=== PATIENT | male | born 1955 | race Caucasian/White ===

== ENCOUNTER → 2018-06-28 14:56 | Outpatient (CLI) | payer BC, SELFPAY ==
[2018-06-28 18:02] LABS: PSA,Total- Diagnostic 4.81 ng/mL (0.0-4.0)
== END ==
PROVIDERS: Family Provider Family Medicine; PCP Family Medicine; Referring Provider Urology; Visit Provider Urology
DX: R97.20 Elevated prostate specific antigen [PSA] (principal)
CPT/HCPCS: 36415; 84153

== ENCOUNTER → 2019-01-17 | Outpatient (CLI) | payer BC, SELFPAY ==
[2019-01-17 10:24] LABS: Hemoglobin A1c 5.7 % (4.2-6.3)
[2019-01-17 10:28] LABS: Anion Gap 5 (5-15); BUN 17 mg/dL (7-18); BUN/Creat Ratio 16.8 RATIO (10-20); Calcium,Total 9.1 mg/dL (8.5-10.1); Chloride 108 mmol/L (98-107); Creatinine, Serum 1.01 mg/dL (0.70-1.30); EST Glomerular Filtration Rate 79 mL/min (>60); Est Glom Filt Rate - Afr Amer 96 mL/min (>60); Glucose 87 mg/dL (74-106); Potassium 4.6 mmol/L (3.5-5.1); Sodium Level 139 mmol/L (136-145)
== END | disposition home or self-care (01) ==
LOC: MFPLAB 08:44
PROVIDERS: Family Provider Family Medicine; PCP Family Medicine; Referring Provider Family Medicine; Visit Provider Family Medicine
DX: I10 Essential (primary) hypertension (principal); R73.09 Other abnormal glucose
CPT/HCPCS: 36415; 80048; 83036

== ENCOUNTER → 2019-10-29 15:21 | Outpatient (CLI) | payer BC, SELFPAY ==
[2019-10-29 17:47] LABS: PSA,Total - Annual Screen 5.52 ng/mL (0.00-4.00)
== END ==
PROVIDERS: PCP Family Medicine; Referring Provider Urology; Visit Provider Urology
DX: Z12.5 Encounter for screening for malignant neoplasm of prostate (principal)
CPT/HCPCS: 36415; 84153; G0103

== ENCOUNTER 2021-10-12 09:46 | Outpatient (CLI) | payer MEDICARE, SELFPAY ==
[2021-10-12 13:14] LABS: PSA,Total- Diagnostic 6.78 ng/mL (0.0-4.0)
== END 2021-10-12 23:59 | disposition home or self-care (01) ==
LOC: MTLAB 09:48
PROVIDERS: PCP Family Medicine; Referring Provider Urology; Visit Provider Urology
DX: R97.20 Elevated prostate specific antigen [PSA] (principal)
CPT/HCPCS: 36415; 84153

== ENCOUNTER 2021-12-20 16:28 | Outpatient (CLI) | payer MEDICARE, SELFPAY ==
--- NOTE | 2021-12-20 | IMM_PTH ---
PATIENT: BLAIR SHEIKH LOC: [facility] U#:[id number] AGE/SX: 66/M ROOM: RE12/20/[address]: Dr. Aristeo Thomas MD : 1955 BED: DIS: 12/20/2021 SPEC #: [id number] RECD: 12/22/21 12:51 STATUS: HILARY REQ #: [id number] PIEDAD: 12/20/21 00:[address]: Aristeo Thomas DEPT: IMMUNOHISTOCHEMISTRY RECD BY: Tracy Alaniz ENTERED: 12/22/21 12:52 SP TYPE: IMMUNO OTHR DR: Dr. Fred Martínez MD Tissues: A - PROSTATE RIGHT B - PROSTATE RIGHT Procedures: 34BE12 (add) P40 (add) 34BE12 (initial) PHYSICIAN & INSTITUTION [place] [address] SPECIMEN INFORMATION: Tissue Source: A - Right prostate, apex, core biopsy, B - Right prostate, mid, core biopsy Clinical Info: Elevated PSA Specimen Number: [id number] CPT code: 38042, 59746 x3 METHODOLOGY: Deparaffinized sections of prefer/formalin-fixed tissue or PAP/DQ stained slides are incubated with monoclonal/polyclonal antibodies/oligonucleotide probes. Localization is made via biotin free immunoperoxidase method. Appropriate controls are performed and reacted as expected. Results on target cell population are indicated in the following table: RESULTS: ANTIBODY / CLONE RESULT Block A P40 (BC28) positive 34BE12 (34BE12) positive Block B P40 (BC28) positive 34BE12 (34BE12) positive These tests were developed and their performance characteristics determined by [facility]. They may not have been cleared or approved by the U.S. Food and Drug Administration. The FDA has determined that such clearance or approval is not necessary. The above immunohistochemical/dualISH markers are ordered and reviewed by the Pathologist. INTERPRETATION: A. Right prostate, apex, core biopsy: Benign prostatic tissue. B. Right prostate, mid, core biopsy: Benign prostatic tissue. AM:haily 12/23/2021
--- NOTE | 2021-12-20 08:00 | PROSBIL_PTH ---
PATIENT: BLAIR SHEIKH LOC: [facility] U#:[id number] AGE/SX: 66/M ROOM: RE12/20/[address]: Dr. Aristeo Thomas MD : 1955 BED: DIS: 12/20/2021 SPEC #: [id number] RECD: 12/20/21 16:22 STATUS: HILARY CARLOS ALBERTO #: [id number] PIEDAD: 12/20/21 08:[address]: Aristeo Thomas DEPT: SURGICAL PATHOLOGY RECD BY: David Palomares ENTERED: 12/21/21 09:50 SP TYPE: PROST BX SLAVA DR: Dr. Fred Martínez MD Tissues: A - PROSTATE RIGHT B - PROSTATE RIGHT C - PROSTATE RIGHT D - PROSTATE LEFT E - PROSTATE LEFT F - PROSTATE LEFT Procedures: PROSTATE BX HEADER OPERATION: Prostate biopsy PRE-OP DIAGNOSIS: Elevated PSA TISSUE SUBMITTED: A - Right apex, B - Right mid, C - Right base, D - Left apex, E - Left mid, F - Left base MICROSCOPIC DIAGNOSIS A. Right prostate, apex, core biopsy: Minimal chronic inflammation and focal glandular atrophy. See comment. B. Right prostate, mid, core biopsy: Mild chronic inflammation and focal glandular atrophy. See comment. C. Right prostate, base, core biopsy: Benign prostatic tissue. D. Left prostate, apex, core biopsy: Focal glandular atrophy and mild chronic inflammation. E. Left prostate, mid, core biopsy: Glandular atrophy and mild chronic inflammation. F. Left prostate, base, core biopsy: Benign prostatic tissue. AM:haily 12/22/2021 COMMENT A & B. Immunohistochemistry ([id number]) supports the above diagnosis. MICROSCOPIC DESCRIPTION Slides are reviewed. GROSS DESCRIPTION A - Received is one container designated prostate, right apex. The specimen consists of two elongated fragments of light ca-white soft tissue measuring 0.8 and 1 cm in length and 0.1 cm in diameter. The specimen is totally submitted in one cassette. B - Received is one container designated prostate, right mid. The specimen consists of two elongated fragments of light ca-white soft tissue each measuring 1.5 cm in length and 0.1 cm in diameter. The specimen is totally submitted in one cassette. C - Received is one container designated prostate, right base. The specimen consists of two elongated fragments of light ca-white soft tissue each measuring 1.3 cm in length and 0.1 cm in diameter. The specimen is totally submitted in one cassette. D - Received is one container designated prostate, left apex. The specimen consists of two elongated fragments of light ca-white soft tissue measuring 0.5 and 1 cm in length and 0.1 cm in diameter. The specimen is totally submitted in one cassette. E - Received is one container designated prostate, left mid. The specimen consists of two elongated fragments of light ca-white soft tissue each measuring 1 cm in length and 0.1 cm in diameter. The specimen is totally submitted in one cassette. F - Received is one container designated prostate, left base. The specimen consists of two elongated fragments of light ca-white soft tissue each measuring 0.8 cm in length and 0.1 cm in diameter. The specimen is totally submitted in one cassette. / SJ:rg 12/21/2021 TC:3 CPT: G0146
== END 2021-12-20 23:59 | disposition home or self-care (01) ==
LOC: LAB 16:29
PROVIDERS: PCP Family Medicine; Visit Provider Urology
DX: R97.20 Elevated prostate specific antigen [PSA] (principal)
CPT/HCPCS: 88305; 88341; 88342; G0416

== ENCOUNTER → 2022-01-04 | Outpatient (CLI) | payer MEDICARE, SELFPAY ==
--- NOTE | 2022-01-04 09:13 | RAD_ITS ---
STUDY: X-RAY - PELVIS AND LEFT HIP REASON FOR EXAM: Male, 66 years old. HIP PAIN TECHNIQUE: views of the pelvis and hip. COMPARISON: None. FINDINGS: There is a non-specific bowel gas pattern. Normal visualized soft tissue structures. Normal bilateral iliac wings, sacroiliac joints and visualized sacrum. Normal bilateral superior and inferior pubic rami. Normal pubic symphysis. Normal bilateral ischial tuberosities. Normal visualized femoral head. Normal acetabulum. Normal hip joint. RAD/HIP, UNI W/ Pelvis 2-3 Views IMPRESSION: Normal x-ray examination of the pelvis and hip. Electronically Signed: Douglas Shanks MD at 1:04 EDT ,
[2022-01-04 10:12] LABS: Anion Gap 5 (5-15); BUN 24 mg/dL (7-18); BUN/Creat Ratio 22.6 RATIO (10-20); Calcium,Total 10.2 mg/dL (8.5-10.1); Chloride 106 mmol/L (98-107); Creatinine, Serum 1.06 mg/dL (0.70-1.30); EST Glomerular Filtration Rate 74 mL/min (>60); Est Glom Filt Rate - Afr Amer 90 mL/min (>60); Glucose 97 mg/dL (74-106); Potassium 4.4 mmol/L (3.5-5.1); Sodium Level 138 mmol/L (136-145)
== END | disposition home or self-care (01) ==
PROVIDERS: Family Medicine; PCP Family Medicine; Referring Provider Family Medicine; Visit Provider Family Medicine
DX: M16.12 Unilateral primary osteoarthritis, left hip (principal); I10 Essential (primary) hypertension
CPT/HCPCS: 36415; 73502; 80048

== ENCOUNTER → 2022-05-19 | Outpatient (CLI) | payer MEDICARE, SELFPAY ==
[2022-05-19 12:46] LABS: Anion Gap 8 (5-15); BUN 20 mg/dL (7-18); BUN/Creat Ratio 20.9 RATIO (10-20); Calcium,Total 9.9 mg/dL (8.5-10.1); Chloride 104 mmol/L (98-107); Creatinine, Serum 0.96 mg/dL (0.70-1.30); EST Glomerular Filtration Rate 83 mL/min (>60); Est Glom Filt Rate - Afr Amer 101 mL/min (>60); Glucose 85 mg/dL (74-106); Potassium 4.8 mmol/L (3.5-5.1); Sodium Level 139 mmol/L (136-145)
== END | disposition home or self-care (01) ==
LOC: MFPLAB 09:42
PROVIDERS: PCP Family Medicine; Referring Provider Family Medicine; Visit Provider Family Medicine
DX: E83.52 Hypercalcemia (principal)
CPT/HCPCS: 36415; 80048

== ENCOUNTER → 2023-05-18 | Outpatient (CLI) | payer MEDICARE, SELFPAY ==
[2023-05-18 10:37] LABS: Anion Gap 5 (5-15); BUN 19 mg/dL (7-18); BUN/Creat Ratio 17.6 RATIO (10-20); Calcium,Total 9.8 mg/dL (8.5-10.1); Chloride 109 mmol/L (98-107); Cholesterol 172 mg/dL (200); Creatinine, Serum 1.08 mg/dL (0.70-1.30); EST Glomerular Filtration Rate 72 mL/min (>60); Est Glom Filt Rate - Afr Amer 87 mL/min (>60); Glucose 90 mg/dL (74-106); High Density Lipoprotein 50 mg/dL; PSA,Total - Annual Screen 8.76 ng/mL (0.00-4.00); Potassium 4.2 mmol/L (3.5-5.1); Sodium Level 139 mmol/L (136-145); Triglycerides 70 mg/dL; Very Low Density Lipoprotein 14 mg/dL (5-40)
== END | disposition home or self-care (01) ==
LOC: MTLAB 07:03
PROVIDERS: PCP Family Medicine; Referring Provider Family Medicine; Visit Provider Family Medicine
DX: Z13.220 Encounter for screening for lipoid disorders (principal); I10 Essential (primary) hypertension; Z12.5 Encounter for screening for malignant neoplasm of prostate
CPT/HCPCS: 36415; 80048; 80061; 84153; G0103

== ENCOUNTER 2023-10-31 07:25 | Day surgery (SDC) | payer MEDICARE, SELFPAY ==
[2023-10-09 08:50] LABS: Absolute Lymphocyte Count 1.95 X10^3/uL (0.83-4.51); Absolute Neutrophil Count 3.5 X10^3/uL (2.0-7.7); Basophil# 0.12 X10^3/uL; Basophil% 1.6 % (0-1); Eosinophil# 0.55 X10^3/uL; Eosinophils% 7.4 % (0-5); Hematocrit 46.9 % (40-54); Hemoglobin 15.9 g/dL (13.0-16.5); Lymphocyte # 1.95 X10^3/ul (0.83-4.51); Lymphocyte % 26.2 % (19-41); Mean Corp Hgb Conc 33.9 g/dL (32-36); Mean Corpuscular Hgb 30.7 pg (27.0-32.0); Mean Corpuscular Volume 90.5 fL (80-94); Mean Platelet Vol. 9.8 fl (6.2-12.0); Monocyte# 1.26 X10^3/uL; Monocyte% 16.9 % (0-10); NRBC Flagged by Analyzer 0 % (0-5); Neutrophil # 3.53 X10^3/uL (2.7-7.7); Neutrophil % 47.4 % (47-70); Platelet Count 274 K/mm3 (150-450); RBC Distribution Width CV 12.4 % (11.6-14.6); RBC Distribution Width SD 41.4 fl (35.1-43.9); Red Blood Count 5.18 M/mm3 (4.6-6.2); White Blood Count 7.5 K/mm3 (4.4-11.0)
[2023-10-09 09:52] LABS: Albumin, Serum 3.9 g/dL (3.2-5.0); Anion Gap 4 (5-15); BUN 17 mg/dL (7-18); BUN/Creat Ratio 14.2 RATIO (10-20); Calcium,Total 10.4 mg/dL (8.5-10.1); Chloride 109 mmol/L (98-107); EST Glomerular Filtration Rate 64 mL/min (>60); Est Glom Filt Rate - Afr Amer 77 mL/min (>60); Glucose 88 mg/dL (74-106); Magnesium 2.5 mg/dL (1.6-2.6); Potassium 4.2 mmol/L (3.5-5.1); Sodium Level 138 mmol/L (136-145)
--- NOTE | 2023-10-25 05:26 | HP.PCM_ITS ---
History and Physical History and Physical? Patient Name: Aguilar Schwartz : 1955 From:? RAY MATHIS PA-C? DATE OF PRE-OPERATIVE EXAM: 10/22/2023 DATE OF SURGERY:? 10/31/2023 SCHEDULED PROCEDURE:? Left total hip arthroplasty HISTORY OF PRESENT ILLNESS: Preoperative history and physical exam was performed on October 22, 2023.? This is a 68-year-old male who is had ongoing pain for the past couple years.? The pain has been progressing since April 2023.? His pain as being constant, dull and sharp.? Pain is increased with going up and down stairs and walking.? He also notes that he has pronation of the left foot with walking.? He does complain of occasional instability.? He states all activities are more difficult at home secondary to his hip pain.? Patient states he has always requiring some support when up and moving.? Pain does awaken him at night.? Pain is located in the left groin.? Patient denies past history of surgery on the left hip.? He has tried rest, elevation with minimal relief.? He has tried oral medications including Tylenol and meloxicam.? Rest has minimal relief.? Patient has medical history pertinent for hypertension.? He denies past history of DVT or pulmonary embolism.? We have obtain surgical clearance from the primary care physician Dr. Martínez.? After failing conservative measures and discussing all treatment options was Dr. Charles Baez, the patient does wish to proceed with a left total hip arthroplasty.? He currently denies any recent chest pain, shortness of breath, fevers chills or recent infections. REVIEW OF SYSTEMS: Review Of Systems: Constitutional: Denies change in appetite, fever and weight change. Cardiovasular: Denies chest pain, heart murmur and irregular heartbeat. Respiratory: Denies cough, pneumonia, shortness of breath, tuberculosis and wheezing. Gastrointestinal: Denies constipation, diarrhea, heartburn, nausea, rectal itching, bloody stools and vomiting. Musculoskeletal: Reports pain, trouble walking and weakness, but denies leg swelling. Skin: Denies Raynaud's, history of shingles and tattoo. Neurological: Denies ambulatory dysfunction, dizziness, numbness/tingling and tremor. Psychiatric: Denies anxiety, insomnia and stress. Hematologic/Lymphatic: Denies anemia, bleeding/bruising tendency and past transfusion. Reviewed, no changes. PAST MEDICAL HISTORY: Advance Care Plan: No Advance Directives Effective Date: 06/20/2023 Past Medical History: Medical Problems: Arthritis, High Blood Pressure Kidney Stones - history? hypercalcemia Accidents: Fracture - (1966) HAND [facility] DR. REBOLLEDO Surgical Hx: Kidney Stones - (1999) [facility] ER Anesthesia Complications: None Assistive Devices: Glasses Reviewed and updated. SOCIAL HISTORY: Social History: Marital: .Occupation: Retired.Work Status: Retired.Hand Dominance: Right- handed. Personal Habits:? Cigarette Use: Never Smoked Cigarettes.Smokeless Tobacco: Never Used Smokeless Tobacco.E-Cigarette Use: Never used.Alcohol: Denies use.Drug Use: Denies Use.Enjoy Exercising: Exercises 1-3 X/Week. Reviewed, no changes. VITALS: Ht: 71.5 Wt: 224lb Wt k.606 BMI: 30.8 BP: 128/74 Pulse: 67 Resp: 16 T: 96.8 T: 36.0C Pain Level: 7 O2SatR: 96 ALLERGIES: No Known Drug Allergy? MEDICATIONS: Oxycodone HCL 5 mg 1-2 tab by mouth every 4 hours, Ondansetron HCL 4 mg 1q 8 hours as needed nausea, Famotidine 20 mg 1 by mouth every day, Meloxicam 7.5 mg 1 by mouth twice a day, Aspirin 81 81 mg one tablet three times a week, Lisinopril 10 mg 1 by mouth every day, Multi For Him? 1 po qdaily, Vitamin D 50 mcg (1999 Ut) 1 by mouth 5 days a week PRE-OP EXAM:? General appearance:NORMAL? ? ? Other: Eyes: Conjunctivae and lids: NORMAL? Pupils: ERR Ears, Nose, Mouth, and Throat: NORMAL? Other: Inspection of lips, teeth and gums: NORMAL? ?Other: Neck: Examination of neck: no masses noted. Respiratory: Assessment of respiratory effort: NORMAL? ?Other: ?Auscultation of lungs: clear to auscultation no wheezes, rhonchi or rales. Cardiovascular:? Auscultation of heart: regular rate and rhythm, no murmurs, gallops or rubs. PHYSICAL EXAMINATION: Patient does walk with an antalgic gait.? Patient's left hip is without erythema.? He has increased pain in the groin with all motion.? Range of motion: 65 flexion with obligatory external rotation, internal rotation 5, external rotation 15.? Sensation intact to light touch.? Resisted range of motion: 4/5 hip strength on the left and 5/5 on the right. IMAGING STUDIES: Previous x-rays of the left hip reveal joint space narrowing, subchondral sclerosis, osteophyte formation consistent with severe stage IV bone on bone erosive osteoarthritis IMPRESSION: 1.? Severe left hip osteoarthritis 2.? Hypertension 3.? History of kidney stone 4.? Obesity with BMI 30.8 PLAN: Dr. Charles Baez did discuss and review with the patient all treatment options including surgical versus nonsurgical options.? Patient does wish to proceed with the above-stated procedure.? Potential risks, benefits, and complications of the procedure were discussed in detail including but not limited to , infection, nerve and blood vessel damage, persistent pain, numbness, tingling, paresthesias, blood clot, pulmonary embolism, and requirement for possible further surgery.? The patient expressed full understanding and has no further questions for the doctor.? Patient does agree to proceed with the above-stated procedure and has signed the surgery consent form. POST-OP MEDICATION PLAN: Pain Medications:? Patient was given the following medications at the preoperative visit: Famotidine, meloxicam, Zofran, and oxycodone.? Patient was instructed to machine operator picker aspirin 81 mg, extra strength Tylenol, and senna.? Patient does have a walker that he will bring to the hospital. DVT Prophylaxis:? Aspirin 81 mg twice daily for 4 weeks postoperatively.? Denies past history of DVT or pulmonary embolism This dictation was created using voice recognition software. Phonetic and/or grammatical errors may exist. ___? I have re-examined the patient.? There are no clinical changes since date of exam. ___? See progress notes for changes. ___? Dictated on admission Date: ? ? ?Time: Signature:
[2023-10-31] VITALS (7 sets, daily range): BP systolic 97–152; BP diastolic 64–88; PULSE 55–72; RESP 11–16; TEMP 36.1–36.7; O2SAT 96–98; BMI 31.6
--- NOTE | 2023-10-31 07:11 | RAD_ITS ---
INDICATION: NESTOR -- in PACU EXAMINATION/TECHNIQUE: X-RAY - XR Hip Unilateral with Pelvis when performed; 2-3 Views COMPARISON: January 04, 2022 FINDINGS: PELVIC BONES: No displaced fracture, destructive or sclerotic lesions. Note that overlapping bowel shadows may however obscure fine detail. Sacroiliac joints are unremarkable. No widening of the pubic symphysis. HIPS: The right hip is within normal limits. There is a new left total hip arthroplasty. The alignment is grossly anatomic. SOFT TISSUES: There are postsurgical changes within the soft tissues of the left thigh. RAD/Hip Min 2 Views (Portable) IMPRESSION: Left total hip arthroplasty, grossly anatomic in alignment. Electronically Signed: Michell Kenyon MD at 20:17 EST ,
[2023-10-31] MEDS: Lactated Ringers 1,000 ML 999 ML IV ×2 (08:10→12:29)
[2023-10-31] MEDS: Magnesium 1 GM over 15 mins IV (08:15)
[2023-10-31] MEDS: Gabapentin 600 MG Tablet PO (08:44)
[2023-10-31] MEDS: Celecoxib 200 MG Capsule 400 MG PO (08:44)
[2023-10-31] MEDS: Acetaminophen 500 MG Tablet 1000 MG PO (08:44)
[2023-10-31] MEDS: Lactated Ringers 1,000 ML 75 ML IV (10:00)
--- NOTE | 2023-10-31 10:00 | HIP_PTH ---
PATHOLOGY RESULTS PATIENT: BLAIR SHEIKH [place] [facility] [place][id number] AGE/SX: 68/M ROOM: RE10/31/[address]: Dr. Charles Baez MD : 1955 BED: DIS: 10/31/2023 SPEC #: [id number] RECD: 10/31/23 12:59 STATUS: HILAYR RESuman #: [id number] PIEDAD: 10/31/23 10:[address]: Charles Baez DEPT: SURGICAL PATHOLOGY RECD BY: Millie Us ENTERED: 10/31/23 12:59 SP TYPE: TOTAL HIP OTHR DR: Dr. Fred Martínez MD Tissues: Hip, NOS Procedures: Decalcification bone/plaque Surgery Specimen Level IV HEADER OPERATION: Total hip replacement anterior approach PRE-OP DIAGNOSIS: Left hip osteoarthritis TISSUE SUBMITTED: Left hip bone and tissue MICROSCOPIC DIAGNOSIS Left hip bone and tissue, total hip replacement/resection: Femoral head with degenerative osteoarthritic changes. Fragments of fibroadipose tissue, fibroconnective tissue and reactive synovial tissue. JENNA:haily 11/05/2023 MICROSCOPIC DESCRIPTION Slides are reviewed. GROSS DESCRIPTION Received is one container labeled with the patient's name and designated bone and soft tissue left hip. The specimen consists of a ca femoral head measuring 5.0 x 5.0 x 4.5 cm. Also present in the container is a piece of bone consistent with portion of femoral neck measuring 4.0 x 4.0 x 1.0 cm. The articular surface displays prominent osteophyte formation, eburnation and bone erosion. Also present in the specimen container are multiple irregular fragments of bone reamings measuring in aggregate 7.0 x 7.0 x 2.0 cm. A piece of soft tissue is noted on the top of femoral head and also present in the container is a piece of fibrocartilaginous tissue measuring in aggregate 8.0 x 4.0 x 0.6 cm. Pattern Maker sections are submitted in two cassettes as follows: 1 - soft tissue, 2 - femoral head after decalcification. / JENNA:haily 10/31/2023 TC:5 CPT: 66815, 11097
[2023-10-31] MEDS: Cefazolin 2 GM in 0.9% Normal Saline (100mL Bag) 100 ML IV (10:14)
[2023-10-31] MEDS: dexAMETHasone 10 MG/ML Vial IV (10:19)
[2023-10-31] MEDS: TXA 1000mg in NS100 100ml (IVPB at Incision) 660 MG IV (10:24)
--- NOTE | 2023-10-31 10:45 | RAD_ITS ---
STUDY: X-RAY - PELVIS AND LEFT HIP REASON FOR EXAM: Male, 68 years old. PAIN TECHNIQUE: 4 fluoroscopic guided views views of the pelvis and hip. 4.1 seconds of fluoroscopic imaging time was utilized COMPARISON: None. FINDINGS: 4 fluoroscopic guided views of the left hip were obtained status post hip prosthesis placement. . Prosthesis appears to be in anatomic alignment and position however for more complete information recommend correlation with surgical notes RAD/Hip 1 view with Pelvis IMPRESSION: Fluoroscopic guided left hip prosthesis placement Electronically Signed: eMndoza Kahn MD at 16:56 EST ,
[2023-10-31] MEDS: TXA 1000mg in NS100 100ml (IVPB at Closure) 660 MG IV (11:10)
[2023-10-31] MEDS: JPS (Morphine 10mg/ml) OPERA.SITE (11:14)
--- NOTE | 2023-10-31 11:18 | PCM.OPRPT ---
Report of Operation Date of Procedure: 10/31/23 Pre-Operative Diagnosis: Left hip primary osteoarthritis Post-Operative Diagnosis: Left hip primary osteoarthritis Surgery/Procedure Performed:: Left minimally invasive direct anterior hip replacement Description of Surgical Findings:: Stable hip with equal leg lengths Surgeon: Charles Baez promotion writer: Blake Vitale Type of Anesthesia: Spinal Special Medications: 2 g Ancef, 1 g TXA at incision, 1 g TXA closure, 10 mg Decadron, joint cocktail (5 mg Duramorph, 30 mL of 0.5% Ropivicaine, 1000 units of epinephrine, 30 mg of Toradol) Specimen's removed: Bony cuts Estimated Blood Loss (mL): 250 Fluids Replaced: 500 ML Description of Procedure: Components used: 1. Accolade 2 Freda femoral stem size 7 127? 2. Freda trident 2 acetabular shell size 58 mm 3. Freda X3 polyethylene F 4. Nisula Biolox delta 36mm, -5mm femoral head Brief history operative indications: 68 yo M who failed conservative measures for their hip osteoarthritis. X-rays were consistent with osteoarthritis including joint space narrowing, osteophyte formation and subchondral cysts. Total hip replacement was discussed with the patient with risks and benefits including but not limited to blood loss, DVTs, PEs, neurovascular damage, dislocation, general risks of anesthesia including loss of life. Patient demonstrated an understanding medical clearance is obtained the patient was consented for surgery. Procedure: On the date of procedure the patient's L hip was marked in the preoperative area. Patient was then taken back to the operating room where anesthesia assumed control of the C-spine and airway and administered anesthetic. Patient was transferred to the operating table and placed in the supine position. The hips were placed at the break of the bed and a sacral bump was placed. L The lower extremity was then prepped out in a sterile fashion using chlorhexidine while the surgeon scrubbed. The PA was vital in the positioning of the patient. Upon reentering the room the left lower extremity was draped in the standard orthopedic fashion and the incision was marked. A timeout was called and everyone agreed upon the side, the site, the procedure be performed, antibody given, and patient's identity. At this time incision was made through skin, subcutaneous tissue, and fat down to fascia. The fascia was then incised and the TFL was retracted laterally. A retractor was placed on the lateral border of the femoral neck. Attention was directed to the inferior portion of the approach and all crossing vessels were identified and appropriately coagulated. A retractor was then placed on the medial portion of the femoral neck. The anterior capsule was then cleared of all soft tissue and then H shaped capsulotomy was made. The retractors were then placed inside the capsule. The femoral neck was identified and a cleanup cut was made. At this time a power corkscrew was used to remove the femoral head. Attention was then turned toward the acetabulum where the soft tissues were appropriately retracted and the acetabulum was sequentially reamed to 58 mm. A 58 mm cup was then selected and impacted into place. Acetabular liner was impacted into place and locking mechanism was verified. The position of the acetabular cup was then verified under live fluoroscopy. Attention was then turned to the femur. Soft tissue releases on the medial and lateral femoral neck were appropriately done, the leg was externally rotated and lateralized. A Gamino retractor was placed medially and proximally to the greater trochanter this allowed appropriate visualization and exposure of the femoral canal. Rongeour was then used to remove excess lateral bone. A canal finder and entry broach were used to open the proximal canal. Once we verified we were down the femoral canal we subsequently broached up to a size 7 femur. The appropriate neck was placed in the previously selected head was trialed with a -5 mm neck. Traction was pulled and the hip was reduced with internal rotation. Once it was appropriately reduced and stability was checked. There was minimal shuck, equal leg lengths and appropriate stability with hyperextension and external rotation as well as with 90? flexion and internal rotation. Fluoroscopy was then also used to verify the position of the components and leg lengths using the contralateral side for comparison. The trial components were then dislocated the proximal femur was again exposed and the components were removed from the wound. The final components were verified and opened. The wound was copiously irrigated out with normal saline. The acetabulum was checked for any residual debris. The final components were placed and impacted. Traction and internal rotation were again used to reduce the hip. After adequate reduction the hip remained stable with appropriate leg lengths. The final components were once again checked with live fluoroscopy and were found to be satisfactory. The wound was then copiously irrigated with normal saline once more, and hemostasis was obtained. Closure was then done using #1 Vicryl runner to close the fascia. A 2-0 vicryl interuppted sutures were used to close the subcutaneous skin. A 3-0 Monocryl and Steri-Strips were used for final skin closure. A Silverlon dressing was placed. Patient was awakened by anesthesia and transferred to the [facility]. Patient was then transferred to the PACU for recovery. During the course of the procedure the physician control and recovery combat rescue (PE) played a vital role. Their intimate knowledge of my steps in the procedure aided in safe and expedient completion of the procedure. The PE played a vital rolls in positioning particularly in obtaining the appropriate positioning of the sacral bump. The PE was also vital in the retraction of soft tissues during the exposure and especially the femoral work as this is a vital part of the procedure to prevent complications and fractures. The PE was also vital and protecting soft tissues during times of bony cuts and reaming. He also played a vital role in closure with my direct supervision. The PE was also important during reduction and dislocation of the joint and trials intraoperatively. Postoperative plan: Patient will get 24 hours postop antibiotics. Patient will get in-house physical therapy and will be weight-bear as tolerated. Patient will follow up in office in 2 weeks for a wound check and x-rays. Aspirin 81 mg twice daily. Complications No intraoperative complications Admit VTE Documentation VTE Present on Admission: No VTE Mechan Device Prophylaxis: SCD's and Thigh High DWAYNE Hose VTE Pharm Prophylaxis ordered?: Yes
[2023-10-31] MEDS: Cefazolin 1 GM/50 ML BAG IV (13:30)
[2023-10-31] MEDS: Lactated Ringers 1,000 ML 125 ML IV (13:30)
[2023-10-31] MEDS: oxyCODONE 5 MG Tablet PO (13:44)
== END 2023-10-31 17:24 | disposition home or self-care (01) ==
LOC: SDC 07:27 → AC 07:31
PROVIDERS: PCP Family Medicine; Referring Provider Specialist; Visit Provider Specialist
PROC: (CPT 27284; principal; 2023-10-31 09:35)
DX: M16.12 Unilateral primary osteoarthritis, left hip (principal); I10 Essential (primary) hypertension; E66.9 Obesity, unspecified; Z68.30 Body mass index [BMI] 30.0-30.9, adult; Z87.442 Personal history of urinary calculi
CPT/HCPCS: 27130; 01214; 36415; 73501; 73502; 76000; 80048; 82040; 83735; 85025; 87081; 88305; 88311; 93005; 97162; C1776; J7120; J2405; J3475

== ENCOUNTER 2024-01-07 08:58 | Outpatient (CLI) | payer MEDICARE, SELFPAY ==
--- NOTE | 2024-01-07 09:00 | RAD_ITS ---
STUDY: X-RAY - LEFT KNEE REASON FOR EXAM: Male, 68 years old. Pain. TECHNIQUE: 4 views of the left knee. COMPARISON: None. FINDINGS: Normal visualized distal femur. Normal visualized proximal tibia and fibula. Normal proximal tibiofibular articulation. There is no demonstrated fracture. There is mild degenerative arthrosis of the medial femorotibial compartment. There is moderate to severe degenerative arthrosis of the lateral femorotibial compartment with moderate to severe joint space narrowing. There is mild degenerative arthrosis of the patellofemoral articulation. There is no significant joint effusion. The soft tissue structures are unremarkable. RAD/Knee 4 or More Views IMPRESSION: Tricompartment degenerative arthrosis, most severe in the lateral femorotibial compartment. No demonstrated fracture. Electronically Signed: Josh Arzola MD at 10:16 EDT ,
--- NOTE | 2024-01-07 09:01 | RAD_ITS ---
STUDY: X-RAY - RIGHT KNEE REASON FOR EXAM: Male, 68 years old. Pain. TECHNIQUE: 4 views of the right knee. COMPARISON: None. FINDINGS: Normal visualized distal femur. Normal visualized proximal tibia and fibula. Normal proximal tibiofibular articulation. There is no demonstrated fracture. There is moderate degenerative arthrosis of the medial femorotibial compartment with moderate joint space narrowing. There is moderate degenerative arthrosis of the lateral femorotibial compartment with moderate joint space narrowing. There is mild degenerative arthrosis of the patellofemoral articulation. The soft tissue structures are unremarkable. RAD/Knee 4 or More Views IMPRESSION: Tricompartment degenerative arthrosis, most pronounced in the medial and lateral femorotibial compartments. No demonstrated fracture. Electronically Signed: Josh Arzola MD at 10:07 EDT ,
== END 2024-01-07 23:59 | disposition home or self-care (01) ==
PROVIDERS: PCP Family Medicine; Referring Provider Family Medicine; Visit Provider Family Medicine
DX: M25.561 Pain in right knee (principal); M25.562 Pain in left knee
CPT/HCPCS: 73564

== ENCOUNTER → 2024-02-21 | Outpatient (CLI) | payer MEDICARE, SELFPAY ==
[2024-02-22 13:08] LABS: PSA, Free % 27.1 % (.)
== END | disposition home or self-care (01) ==
LOC: MTLAB 08:54
PROVIDERS: PCP Family Medicine; Referring Provider Urology; Visit Provider Urology
DX: R97.20 Elevated prostate specific antigen [PSA] (principal)
CPT/HCPCS: 36415; 84153; 84154

== ENCOUNTER → 2025-02-24 | Outpatient (CLI) | payer MEDICARE, SELFPAY ==
[2025-02-25 13:08] LABS: PSA, Free 1.83 ng/mL; PSA, Free % 27.9 % (.)
== END | disposition home or self-care (01) ==
LOC: MTLAB 08:22
PROVIDERS: PCP Family Medicine; Referring Provider Urology; Visit Provider Urology
DX: R97.20 Elevated prostate specific antigen [PSA] (principal)
CPT/HCPCS: 36415; 84153; 84154

== ENCOUNTER → 2025-06-19 | Outpatient (CLI) | payer MEDICARE, SELFPAY ==
--- OUTSIDE RECORDS SUMMARY | 2025-06-19 09:12 | XMS RPT_ITS | CCD ---
Author Organization [facility] Care Team Providers Care Tool And Cutter Grinder Name Role Phone Tanya LANDON, Dr. Ibarra Primary Care Provider William LANDON, Dr. Aristeo Hilton Attending Provider William LANDON, Dr. Aristeo Hilton Referring Provider 1( [phone] Fred Martínez Primary Care Unavailable Aristeo Thomas Referring Unavailable Aristeo Thomas Attending Unavailable Medications Current Medications Medication Drug Class(es) Dates Sig (Normalized) Sig (Original) aspirin 81 mg oral tablet (3 sources) Platelet Aggregation Inhibitor, Nonsteroidal Anti-inflammatory Drug Start: 10-05-2023 take 1 capsule by mouth every other day Aspirin 81 mg capsule Active 81 mg PO .QOD October 05, 2023 1:00am [facility] cholecalciferol 0.025 mg chewable tablet (3 sources) Vitamin D Start: 10-05-2023 take 1 tablet by mouth once daily Cholecalciferol (Vitamin D3) (Vitamin D3) 25 mcg (1,000 unit) tablet,chewable Active 25 ug PO DAILY October 05, 2023 1:00am SUPPLEMENT lisinopril 10 mg oral tablet (3 sources) Angiotensin Converting Enzyme Inhibitor Start: 10-05-2023 take 1 tablet by mouth once daily Lisinopril 10 mg tablet Active 10 mg PO DAILY October 05, 2023 1:00am HTN Completed/Discontinued Medications Medication Drug Class(es) Dates Sig (Normalized) Sig (Original) Multivit,Ilene,Mn-Foli c-D3-Lycop (One A Day Men Complete) 240-25-300 mcg tablet (3 sources) Start: 10-05-2023 Multivit,Ilene,Mn-Fol ic-D3-Lycop (One A Day Men Complete) 240-25-300 mcg tablet Active 1 {tbl} PO DAILY October 05, 2023 1:00am SUPPLEMENT Start: 10-05-2023 take 1 tablet by shalini th once daily Multivit,Ilene,Af-Oqctf-P5-Lycop (One A Da y Men Complete) 240-25-300 mcg tablet Active 1 TABLET PO DAILY October 05, 2023 1:00am Start: 10-05-2023 take 1 tablet by shalini th once daily Multivit,Ilene,Aj-Kbddg-K3-Lycop (One A Da y Men Complete) 240-25-300 mcg tablet Active 1 TABLET PO DAILY October 05, 2023 12:00am Problems Problem Classification Problem Date Documented Da te Episodic/Chronic Other screening for suspected conditions (not mental disorders or infectious disease) (1 source) Elevated prostate specific antigen [PSA]; Translations: [Elevated prostate specific antigen [PSA]] Onset: 03-01-2025 Episodic Results Test Name Value Interpretation Reference Range Facility PSA Total+%Freeon 02-25-2025 PSA, FREE 1.83 ng/mL Normal N/A [facility] Comment on above: Result Comment: Nohemy EVERETT methodology. Performed By: #### L 3110.0500 #### [facility] [address] [place], [place], [id number] PSA, FREE % 27.9 Normal . [facility] Comment on above: Result Comment: The table below lists the probability of prostate cancer for men with non-suspicious AUGUSTINE results and total PSA between 4 and 10 ng/mL, by patient age (Itzel et al, TAYLA 1998, 279:1542). % Free PSA 50-64 yr 65-75 yr 0.00-10.00% 56% 55% 10.01-15.00% 24% 35% 15.01-20.00% 17% 23% 20.01-25.00% 10% 20% >25.00% 5% 9% Please note: Itzel et al did not make specific recommendations regarding the use of percent free PSA for any other population of men. Performed at: [facility] [address] [place] [id number] Electrical Engineering Technician: Andre Prieto PhD, Phone: [phone] Performed By: #### L 3110.0500 #### [facility] [address] [place], [place], [id number] PSA, TOTAL ULTR 6.550 ng/mL Abnormal 0.000-4.000 [facility] Comment on above: Result Comment: Nohemy EVERETT methodology. According to the [place] [employer], Serum PSA should decrease and remain at undetectable levels after radical prostatectomy. The AUA defines biochemical recurrence as an initial PSA value 0.200 ng/mL or greater followed by a subsequent confirmatory PSA value 0.200 ng/mL or greater. Values obtained with different assay methods or kits cannot be used interchangeably. Results cannot be interpreted as absolute evidence of the presence or absence of malignant disease. Performed By: #### L 3110.0500 #### [facility] [address] [place], [place], [id number] Serum or plasma free prostat e specific antigen (PSA)/total PSA mass ratioOrdered By: Aristeo Thomas on 02-24-2025 Free PSA/Total PSA [Mass fraction] 27.9 % . [facility] Comment on above: The table below list s the probability of prostate cancer formen with non-suspicious AUGUSTINE results and total PSA between4 and 10 ng/mL, by patient age (Itzel et al, TAYLA 1998,279:1542). % Free PSA 50-64 yr 65-75 yr 0.00-10.00% 56% 55% 10.01-15.00% 24% 35% 15.01-20.00% 17% 23% 20.01-25.00% 10% 20% >25.00% 5% 9%Please note: Itzel et al did not make specific recommendations regarding the use of percent free PSA for any other population of men.Performed at: - [facility] [id number] Director: Andre Prieto PhD, Phone: [phone] Absolute lymphocyte countOrd ered By: Charles Baez on 10-09-2023 Lymphocytes Auto (Unsp spec) [#/Vol] 1.95 10*3/uL 0.83-4.51 [facility] Automated lymphocyte count a s percentage of total leukocytesOrdered By: Charles Baez on 10-09-2023 Lymphocytes/100 WBC Auto (Unsp spec) 26.2 % 19-41 [facility] Basophil percentageOrdered B y: Charles Baez on 10-09-2023 Basophils/100 WBC (Bld) 1.6 % 0-1 [facility] Chloride [Moles/Vol] 109 mmol/L 98-107 [facility] Eosinophils/100 WBC (Bld) 7.4 % 0-5 [facility] Glucose [Mass/Vol] 88 mg/dL 74-106 [facility] Hemoglobin (Bld) [Mass/Vol] 15.9 g/dL 13.0-16.5 [facility] Monocytes/100 WBC (Bld) 16.9 % 0-10 [facility] Neutrophils (Bld) [#/Vol] 3.5 10*3/uL 2.0-7.7 [facility] Neutrophils/100 WBC (Bld) 47.4 % 47-70 [facility] Potassium [Moles/Vol] 4.2 mmol/L 3.5-5.1 [facility] Sodium [Moles/Vol] 138 mmol/L 136-145 [facility] WBC (Bld) [#/Vol] 7.5 10*3/uL 4.4-11.0 [facility] Determination of erythrocyte mean corpuscular volume (MCV)Ordered By: Charles Baez on 10-09-2023 MCV (RBC) [Entitic vol] 90.5 fL 80-94 [facility] Erythrocyte distribution wid th ratioOrdered By: Charles Baez on 10-09-2023 Erythrocyte distribution width (RBC) [Ratio] 12.4 % 11.6-14.6 [facility] Erythrocyte distribution wid th standard deviationOrdered By: Charles Baez on 10-09-2023 Erythrocyte distribution width (RBC) [Entitic vol] 41.4 fL 35.1-43.9 [facility] Hematocrit Auto (Bld) [Volum e fraction]Ordered By: Charles Baez on 10-09-2023 Hematocrit (Bld) [Volume fraction] 46.9 % 40-54 [facility] Immature granulocytes/100 WB C Auto (Bld)Ordered By: Charles Baez on 10-09-2023 Immature granulocytes/100 WBC (Bld) 0.500 % 0.0-0.9 [facility] Comment on above: IG% - Immature Granu locytes (promyelocytes, myelocytes and metamyelocytes) > 1% indicates that a LEFT SHIFT is Present. Laboratory - Chemistry and C hemistry - challengeOrdered By: Charles Baez on 10-09-2023 CO2 [Moles/Vol] 25.0 mmol/L 21.0-32.0 [facility] Magnesium [Mass/Vol] 2.5 mg/dL 1.6-2.6 [facility] Urea nitrogen/Creatinine [Mass ratio] 14.2 mg/mg 10-20 [facility] Laboratory - Hematology and Cell countsOrdered By: Charles Baez on 10-09-2023 MCH (RBC) [Entitic mass] 30.7 pg 27.0-32.0 [facility] MCHC (RBC) [Mass/Vol] 33.9 g/dL 32-36 [facility] Nucleated RBC/100 WBC (Bld) [Ratio] 0 % 0-5 [facility] Platelet mean volume (Bld) [Entitic vol] 9.8 fL 6.2-12.0 [facility] Platelets (Bld) [#/Vol] 274 10*3/uL 150-450 [facility] No Panel InformationOrdered By: Charles Baez on 10-09-2023 Estimated GFR (MDRD) Amer 77 mL/min >60 [facility] Comment on above: GFR Calc Estimated GFR (MDRD) Non-Af Amer 64 mL/min >60 [facility] Comment on above: Non- GFR Calc Nasal Screen MRSA/MSSA [facility] Nasal Screen MRSA/MSSA [facility] RBC Auto (Bld) [#/Vol]Ordere d By: Charles Baez on 10-09-2023 RBC (Bld) [#/Vol] 5.18 10*6/uL 4.6-6.2 [facility] Serum or plasma calcium linsey urement (mass/volume)Ordered By: Charles Baez on 10-09-2023 Calcium [Mass/Vol] 10.4 mg/dL 8.5-10.1 [facility] Serum or plasma creatinine m easurement (mass/volume)Ordered By: Charles Baez on 10-09-2023 Creatinine [Mass/Vol] 1.20 mg/dL 0.70-1.30 [facility] Comment on above: The validity of the calculated GFR & GFRAA in patients over 70 years has not been determined. Clinical correlation is essential. Serum or plasma urea nitroge n measurement (mass/volume)Ordered By: Charles Baez on 10-09-2023 Urea nitrogen [Mass/Vol] 17 mg/dL 7-18 [facility] Thin prep Papanicolaou smear with manual screeningOrdered By: Charles Baez on 10-09-2023 Thin prep Papanicolaou smear with manual screening 3.9 g/dL 3.2-5.0 [facility] Thin prep Papanicolaou smear with manual screening 4 5-15 [facility] Basophil percentageOrdered B y: Bro Martínez on 05-18-2023 Chloride [Moles/Vol] 109 mmol/L 98-107 [facility] Cholesterol [Mass/Vol] 172 mg/dL <200 [facility] Comment on above: <200 mg/dL Desirable 200-240 mg/dL Borderline >240 mg/dL High Risk Glucose [Mass/Vol] 90 mg/dL 74-106 [facility] Potassium [Moles/Vol] 4.2 mmol/L 3.5-5.1 [facility] Sodium [Moles/Vol] 139 mmol/L 136-145 [facility] Triglyceride [Mass/Vol] 70 mg/dL <199 [facility] Comment on above: The drugs N-Acetylcy steine and Metamizole may falsely depress this assay.Serum Triglycerides Reference Interval Normal <150 mg/dL Borderline high 150 - 199 mg/dL High 200 - 499 mg/dL Very High > or = 500 mg/dL Laboratory - Chemistry and C hemistry - challengeOrdered By: Bro Martínez on 05-18-2023 CO2 [Moles/Vol] 25.0 mmol/L 21.0-32.0 [facility] Urea nitrogen/Creatinine [Mass ratio] 17.6 mg/mg 10-20 [facility] No Panel InformationOrdered By: Bro Martínez on 05-18-2023 Estimated GFR (MDRD) Amer 87 mL/min >60 [facility] Comment on above: GFR Calc Estimated GFR (MDRD) Non-Af Amer 72 mL/min >60 [facility] Comment on above: Non- GFR Calc Prostate Specific Antigen Screen 8.76 ng/mL 0.00-4.00 [facility] Comment on above: This test was perfor med using the TPSA assay method for the[employer] chemistry system. Values obtained with differentassay methods cannot be used interchangably.When changing PSA assays in the course of monitoring apatient, additional sequential testing should be carriedout to confirm baseline values. Serum or plasma calcium linsey urement (mass/volume)Ordered By: Bro Martínez on 05-18-2023 Calcium [Mass/Vol] 9.8 mg/dL 8.5-10.1 [facility] Serum or plasma cholesterol in HDL measurement (mass/volume)Ordered By: Bro Martínez on 05-18-2023 Cholesterol in HDL [Mass/Vol] 50 mg/dL >40 [facility] Comment on above: The drugs N-Acetylcy steine and Metamizole may falsely depress this assay. Reference Range HDL <40 mg/dL Low HDL Cholesterol HDL >or= 60 mg/dL High HDL Cholesterol Serum or plasma cholesterol in VLDL measurement (mass/volume)Ordered By: Bro Martínez on 05-18-2023 Cholesterol in VLDL [Mass/Vol] 14 mg/dL 5-40 [facility] Serum or plasma creatinine m easurement (mass/volume)Ordered By: Bro Martínez on 05-18-2023 Creatinine [Mass/Vol] 1.08 mg/dL 0.70-1.30 [facility] Comment on above: The validity of the calculated GFR & GFRAA in patients over 70 years has not been determined. Clinical correlation is essential. Serum or plasma low density lipoprotein (LDL) cholesterol measurement (mass/volume)Ordered By: Bro Martínez on 05-18-2023 Cholesterol in LDL [Mass/Vol] 108 mg/dL 0-130 [facility] Serum or plasma urea nitroge n measurement (mass/volume)Ordered By: Bro Martínez on 05-18-2023 Urea nitrogen [Mass/Vol] 19 mg/dL 7-18 [facility] Thin prep Papanicolaou smear with manual screeningOrdered By: Bro Martínez on 05-18-2023 Thin prep Papanicolaou smear with manual screening 5 5-15 [facility] Basophil percentageon 2021 Chloride [Moles/Vol] 104 mmol/L 98-107 [facility] Work Phone: Glucose [Mass/Vol] 85 mg/dL 74-106 [facility] Work Phone: Potassium [Moles/Vol] 4.8 mmol/L 3.5-5.1 [facility] Work Phone: Sodium [Moles/Vol] 139 mmol/L 136-145 [facility] Work Phone: Laboratory - Chemistry and C hemistry - challengeon 05-19-2022 CO2 [Moles/Vol] 27.0 mmol/L 21.0-32.0 [facility] Work Phone: Urea nitrogen/Creatinine [Mass ratio] 20.9 mg/mg 10-20 [facility] Work Phone: No Panel Informationon 05-19 Estimated GFR (MDRD) Amer 101 mL/min >60 [facility] Work Phone: Comment on above: GFR Calc Estimated GFR (MDRD) Non-Af Amer 83 mL/min >60 [facility] Work Phone: Comment on above: Non- GFR Calc Serum or plasma calcium linsey urement (mass/volume)on 05-19-2022 Calcium [Mass/Vol] 9.9 mg/dL 8.5-10.1 [facility] Work Phone: Serum or plasma creatinine m easurement (mass/volume)on 05-19-2022 Creatinine [Mass/Vol] 0.96 mg/dL 0.70-1.30 [facility] Work Phone: Comment on above: The validity of the calculated GFR & GFRAA in patients over 70 years has not been determined. Clinical correlation is essential. Serum or plasma urea nitroge n measurement (mass/volume)on 05-19-2022 Urea nitrogen [Mass/Vol] 20 mg/dL 7-18 [facility] Work Phone: Thin prep Papanicolaou smear with manual screeningon 05-19-2022 Thin prep Papanicolaou smear with manual screening 8 5-15 [facility] Work Phone: No Panel Informationon 10-12 Prostate Specific Antigen Total 6.78 ng/mL 0.0-4.0 [facility] Work Phone: Comment on above: This test was perfor med using the TPSA assay method for [employer] chemistry system. Values obtained with differentassay methods cannot be used interchangably.When changing PSA assays in the course of monitoring apatient, additional sequential testing should be carriedout to confirm baseline values. Vital Signs Date Time Vital Sign Value Performing Clinician Faci lity 10-31-2023 12:45-0500 Body temperature 96.9 [degF] [facility] 10-31-2023 12:45-0500 Diastolic blood pressure 80 mm[Hg] [facility] 10-31-2023 12:45-0500 Heart rate 61 /min [facility] 10-31-2023 12:45-0500 Respiratory rate 12 /min [facility] 10-31-2023 12:45-0500 SaO2% (BldA) [Mass fraction] 98 % [facility] 10-31-2023 12:45-0500 Systolic blood pressure 120 mm[Hg] [facility] 10-31-2023 12:30-0500 Inhaled oxygen flow rate 4 L/min [facility] 10-31-2023 08:39-0500 Body height 177.[address] [facility] 10-31-2023 08:39-0500 Body mass index (BMI) [Ratio] 31.6 kg/m2 [facility] 10-31-2023 08:39-[address] [facility] Encounters Encounter Date Encounter Type Care Provider Facility Start: 02-24-2025 End: 02-24-[address] Fred Martínez MD Work Phone: [facility] [place] Start: 02-24-2025 End: 02-24-[address] Aristeo Thomas MD [facility] [place] Work Phone: Start: 02-24-2025 End: 02-24-2025 ambulatory Fred Martínez Facility:[facility] Start: 01-07-2024 End: 01-07-2024 ambulatory [facility] Work Phone: Start: 01-07-2024 End: 01-07-2024 [facility] Start: 10-31-2023 End: 10-31-2023 Admission to same day surgery center [facility] Start: 10-31-2023 End: 10-31-2023 ambulatory [facility] Work Phone: Start: 05-18-2023 End: 05-18-2023 ambulatory [facility] Work Phone: Start: 05-18-2023 End: 05-18-2023 Patient encounter procedure [facility] Work Phone: Start: 05-19-2022 End: 05-19-2022 ambulatory [facility] Work Phone: Start: 05-19-2022 End: 05-19-2022 [facility] Start: 12-20-2021 End: 12-20-2021 Patient encounter procedure [facility] Start: 10-12-2021 End: 10-12-2021 Patient [facility] Procedures Date Procedure Procedure Detail Performing Clinician Start: 02-24-2025 Free prostate specif ic antigen level Dr. Fred Martínez MD Work Phone: Comment on above: Doc [facility] methodol ogy. Start: 02-24-2025 Prostate specific an tigen measurement Dr. Fred Martínez MD Work Phone: Comment on above: Doc [facility] methodol ogy.According to the [place] [employer], Serum PSAshould decrease and remain at undetectable levels afterradical prostatectomy. The AUA defines biochemicalrecurrence as an initial PSA value 0.200 ng/mL or greaterfollowed by a subsequent confirmatory PSA value 0.200 ng/mLor greater. Values obtained with different assay methods orkits cannot be used interchangeably. Results cannot beinterpreted as absolute evidence of the presence or absenceof malignant disease. Start: 01-07-2024 End: 01-07-2024 Radiologic examination of knee Start: 10-31-2023 Fluoroscopic guidance Start: 10-31-2023 Plain x-ray of pelvi s and lower extremity Start: 10-31-2023 Total replacement of hip Start: 10-31-2023 Plain X-ray of hip Start: 10-09-2023 Nasal Screen MRSA/MSSA Plan of Treatment Date Care Activity Detail Author Start: 10-31-2023 Anesthesia open total hip arthroplasty ANESTH HIP ARTHROPLASTY [facility] Start: 10-31-2023 Arthrp acetblr/prox fem prostc agrft/algrft TOTAL HIP ARTHROPLASTY [facility] Start: 10-31-2023 Application of ice collar, cap or bag [facility] Start: 10-31-2023 Exercises [facility] Start: 10-31-2023 Incentive spirometry [facility] Start: 10-31-2023 Neurovascular assessment [facility] Start: 10-31-2023 Patient discharge [facility] Start: 10-31-2023 Patient education [facility] Start: 10-31-2023 Plain X-ray of hip Hip Min 2 Views (Portable) [facility] Start: 10-31-2023 Provision of activity privileges [facility] Start: 10-31-2023 Recommendation to continue with treatment [facility] Start: 10-31-2023 Referral to service [facility] Start: 10-31-2023 Vital signs measurements [facility] Start: 10-31-2023 Wound care [facility] Start: 10-31-2023 XR Hip GE 2 Views [facility] Start: 10-31-2023 [facility] Electrocardiographic procedure [facility] Patient referral [facility] Work Phone: Payers Date Payer Category Payer Medicare [id number] 2025 Self-pay [id number] 2017 Unknown [id number] 1a [id number] Unknown [id number] Social History Date Type Detail Facility Tobacco smoking stat [facility] Unknown if ever smoked [facility] Work Phone: Start: 1955 Sex Assigned At Male [facility] Start: 10-05-2023 End: 10-05-2023 Tobacco smoking status [facility] Unknown if ever smoked [facility] Start: 10-05-2023 [facility] Medical Equipment Procedure Code Equipment Code Equipment Origin al Text Equipment Identifier Dates Minimally invasive total replacement of hip joint by anterior approach ([id number]) Ceramic femoral head prosthesis ()[id number] FDA Start: 10-31-2023 Minimally invasive total replacement of hip joint by anterior approach ([id number]) Coated hip femur prosthesis, modular ()[id number] FDA Start: 10-31-2023 Minimally invasive total replacement of hip joint by anterior approach ([id number]) Non-constrained polyethylene acetabular liner ()[id number] FDA Start: 10-31-2023 Minimally invasive total replacement of hip joint by anterior approach ([id number]) Acetabular shell ()[id number] FDA Start: 10-31-2023 Goals Date Patient Goal Desired Activity /State Mental Status Date Assessment Result Facility 10-31-2023 Cognitive function Voice/Name [facility] Work Phone: Procedure note 10-31-2023 Note Date & Type Note Facility 10-31-2023 Procedure note [facility] History and physical note 10-31-2023 Note Date & Type Note Facility 10-31-2023 History and physi ilene note Note Date/Time October 25, 2023 5:26am [facility] Medical Records Department [address] [place] [address] History & Physical Exam 10/25/23 0526 MR#: [id number] Acct: [id number] Name: AGUILAR SCHWARTZ Rep #:[id number] : 1955 68 From: Blake GARDNER PA-C PCP: Dr. Bro Martínez MD Status: [facility] Location: [place] [address] History and Physical History and Physical? Patient Name: Aguilar Schwartz : 1955 From:? BLAKE MATHIS PA-C? DATE OF PRE-OPERATIVE EXAM: 10/22/2023 DATE OF SURGERY:? 10/31/2023 SCHEDULED PROCEDURE:? Left total hip arthroplasty HISTORY OF PRESENT ILLNESS: Preoperative history and physical exam was performed on October 22, 2023.? Thisis a 68-year-old male who is had ongoing pain for the past couple years.? The pain has been progressing since April 2023.? His pain as being constant, dull and sharp.? Pain is increased with going up and down stairs and walking.? He also notes that he has pronation of the left foot with walking.? He does complain of occasional instability.? He states all activities are more difficultat home secondary to his hip pain.? Patient states he has always requiring some support when up and moving.? Pain does awaken him at night.? Pain is located in the left groin.? Patient denies past history of surgery on the left hip.? He hastried rest, elevation with minimal relief.? He has tried oral medications including Tylenol and meloxicam.? Rest has minimal relief.? Patient has medical history pertinent for hypertension.? He denies past history of DVT or pulmonary embolism.? We have obtain surgical clearance from the primary care physician .? After failing conservative measures and discussing all treatment options was Dr. Charles Nestor, the patient does wish to proceed with a left total hip arthroplasty.? He currently denies any recent chest pain, shortness ofbreath, fevers chills or recent infections. REVIEW OF SYSTEMS: Review Of Systems: Constitutional: Denies change in appetite, fever and weight change. Cardiovasular: Denies chest pain, heart murmur and irregular heartbeat. Respiratory: Denies cough, pneumonia, shortness of breath, tuberculosis and wheezing. Gastrointestinal: Denies constipation, diarrhea, heartburn, nausea, rectal itching, bloody stools and vomiting. Musculoskeletal: Reports pain, trouble walking and weakness, but denies leg swelling. Skin: Denies Raynaud's, history of shingles and tattoo. Neurological: Denies ambulatory dysfunction, dizziness, numbness/tingling and tremor. Psychiatric: Denies anxiety, insomnia and stress. Hematologic/Lymphatic: Denies anemia, bleeding/bruising tendency and past transfusion. Reviewed, no changes. PAST MEDICAL HISTORY: Advance Care Plan: No Advance Directives Effective Date: 06/20/2023 Past Medical History: Medical Problems: Arthritis, High Blood Pressure Kidney Stones - history? hypercalcemia Accidents: Fracture - (1966) HAND [facility] DR. REBOLLEDO Surgical Hx: Kidney Stones - (1999) [facility] ER Anesthesia Complications: None Assistive Devices: Glasses Reviewed and updated. SOCIAL HISTORY: Social History: Marital: .Occupation: Retired.Work Status: Retired.Hand Dominance: Right-handed. Personal Habits:? Cigarette Use: Never Smoked Cigarettes.Smokeless Tobacco: Never Used Smokeless Tobacco.E-Cigarette Use: Never used.Alcohol: Denies use.Drug Use: Denies Use.Enjoy Exercising: Exercises 1-3 X/Week. Reviewed, no changes. VITALS: Ht: 71.5 Wt: 224lb Wt k.606 BMI: 30.8 BP: 128/74 Pulse: 67 Resp: 16 T: 96.8 T: 36.0C Pain Level: 7 O2SatR: 96 ALLERGIES: No Known Drug Allergy? MEDICATIONS: Oxycodone HCL 5 mg 1-2 tab by mouth every 4 hours, Ondansetron HCL 4 mg 1q 8 hours as needed nausea, Famotidine 20 mg 1 by mouth every day, Meloxicam 7.5 mg 1 by mouth twice a day, Aspirin 81 81 mg one tablet three times a week, Lisinopril 10 mg 1 by mouth every day, Multi For Him? 1 po qdaily, Vitamin D 50 mcg (1999 Ut) 1 by mouth 5 days a week PRE-OP EXAM:? General appearance:NORMAL? ? ? Other: Eyes: Conjunctivae and lids: NORMAL? Pupils: ERR Ears, Nose, Mouth, and Throat: NORMAL? Other: Inspection of lips, teeth and gums: NORMAL? ?Other: Neck: Examination of neck: no masses noted. Respiratory: Assessment of respiratory effort: NORMAL? ?Other: ?Auscultation of lungs: clear to auscultation no wheezes, rhonchi or rales. Cardiovascular:? Auscultation of heart: regular rate and rhythm, no murmurs, gallops or rubs. PHYSICAL EXAMINATION: Patient does walk with an antalgic gait.? Patient's left hip is without erythema.? He has increased pain in the groin with all motion.? Range of motion:65 flexion with obligatory external rotation, internal rotation 5, external rotation 15.? Sensation intact to light touch.? Resisted range of motion: 4/5 hip strength on the left and 5/5 on the right. IMAGING STUDIES: Previous x-rays of the left hip reveal joint space narrowing, subchondral sclerosis, osteophyte formation consistent with severe stage IV bone on bone erosive osteoarthritis IMPRESSION: 1.? Severe left hip osteoarthritis 2.? Hypertension 3.? History of kidney stone 4.? Obesity with BMI 30.8 PLAN: Dr. Charles Baez did discuss and review with the patient all treatment options including surgical versus nonsurgical options.? Patient does wish to proceed with the above-stated procedure.? Potential risks, benefits, and complications of the procedure were discussed in detail including but not limited to , infection, nerve and blood vessel damage, persistent pain, numbness, tingling, paresthesias, blood clot, pulmonary embolism, and requirement for possible further surgery.? The patient expressed full understanding and has no further questions for the doctor.? Patient does agree to proceed with the above-stated procedure and has signed the surgery consent form. POST-OP MEDICATION PLAN: Pain Medications:? Patient was given the following medications at the preoperative visit: Famotidine, meloxicam, Zofran, and oxycodone.? Patient was instructed to picker operator aspirin 81 mg, extra strength Tylenol, and senna.? Patientdoes have a walker that he will bring to the hospital. DVT Prophylaxis:? Aspirin 81 mg twice daily for 4 weeks postoperatively.? Deniespast history of DVT or pulmonary embolism This dictation was created using voice recognition software. Phonetic and/or grammatical errors may exist. ___? I have re-examined the patient.? There are no clinical changes since date of exam. ___? See progress notes for changes. ___? Dictated on admission Date: ? ? ?Time: Signature: _ 10/25/23 0526 <Electronically signed by Blake GARDNER PA-C> Cosigner Signature (if applicable): CC: MERE Mathis; Dr. Bro Martínez MD; Dr. Charles Baez MD~ Signed ADDENDUM by Dr. Charles Baez MD on 10/31/23 at 0849 Addendum I have examined the patient and the H&P has been reviewed. There are no clinicalchanges since date of exam. 10/31/23 0849<Electronically signed by Charles Baez MD> Cosigner Signature (if applicable): cc: MERE Mathis; Dr. Bro Martínez MD; Dr. Charles Baez MD ~* Signed [facility] Work Phone: Hospital Discharge instructions 10-09-2023 Note Date & Type Note Facility 10-09-2023 Hospital Discharg e instructions Ambulatory [id number] Lead EKG [[facility]] Time Frame: 10/09/23, Location: None Selected Additional Instructions Implant Used?: Yes [facility] Work Phone: Evaluation note Note Date & Type Note Facility Evaluation note No assessment information availa ble [facility] Work Phone: Reason for referral (narrative) Note Date & Type Note Facility Reason for referral (narrative) No reason for referral information available [facility] Work Phone: Chief Complaint and Reason for Visit Chief Complaint PSA Chief Complaint EORDER Chief Complaint Total Hip Anterior A pproach Chief Complaint Total Hip Anterior A pproach EORDER Chief Complaint Admit Date PSA February 24, 2025 8:21 am Advance Directives No Advanced Directives Records Found Advance Directive Response Recorded Date/ Time Living Will Yes October 05 9:17am Power of Candy Maker Yes October 05, 2023 9:17am Name of Medical Power of Candy Maker [employer] October 05, 2023 9:17am Advance Directive Response Recorded Date/ Time Living Will Yes October 05 10:17am Power of Candy Maker Yes October 05, 2023 10:17am Name of Medical Power of Candy Maker HANDY BECKER October 05, 2023 10:17am Summary Purpose Family History No Family History Records Found Additional Source Comments Goals (unrecognized section and content) Goals may be documented in a n alternate sectionGoals may be documented in an alternate sectionGoals may be documented in an alternate section Care Teams (unrecognized sec tion and content) Team Status: Active Member Role Status Dates Dr. Ike Gracia MD Family Provider Active Dr. Bro Martínez MD Primary Care Provider Activ e Team Status: Inactive Member Role Status Dates Dr. Bro Martínez MD Primary Care Provider, Attending Provider, Referring Provider Active Team Status: Inactive Member Role Status Dates Dr. Bro Martínez MD Primary Care Provider Activ e Dr. Charles Baez MD Attending Provider, Referring P rowinifred Active Team Status: Active Member Role Status Dates Dr. Ike Gracia MD Family Provider Active Dr. Fred Martínez MD Primary Care Provider Acti ve Team Status: Inactive Member Role Status Dates Dr. Fred Martínez MD Primary Care Provider Acti ve Dr. Charles Baez MD Attending Provider, Referring P rovider Active Team Status: Inactive Member Role Status Dates Dr. Fred Martínez MD Primary Care Provider, Attending Provider, Referring Provider Active Team Status: Active Member Role/Relationship Status Dates Dr. Fred Martínez MD Primary Care Provider Acti ve Team Status: Inactive Member Role/Relationship Status Dates Dr. Fred Martínez MD Primary Care Provider Acti ve Start: February 24, 2025 End: February 24, 2025 Dr. Aristeo Thomas MD Attending Provider Active Start: February 24, 2025 End: February 24, 2025 Dr. Aristeo Thomas MD Referring Provider Active Start: February 24, 2025 End: February 24, 2025 (unrecognized sect ion and content) No Status Records Found INFORMATION SOURCE (unrecogn ized section and content) DATE CREATED AUTHOR 03/01/2025 [facility] FOR RECORDS PERTAINING TO PATIENTS WHO ARE OR HAVE BEEN ENROLLED IN A CHEMICAL DEPENDENCY/SUBSTANCEABUSE PROGRAM, SOME INFORMATION MAY BE OMITTED. This clinical summary was aggregated from multiple sources. Caution should be exercised in using it in the provision of clinical care. This summary normalizes information from multiple sources, and as a consequence, information in this document may materially change the coding, format and clinical context of patient data. In addition, data may be omitted in some cases. CLINICAL DECISIONS SHOULD BE BASED ON THE PRIMARY CLINICAL RECORDS. [employer] provides no warranty or guarantee of the accuracy or completeness of information in this document.
--- OUTSIDE RECORDS SUMMARY | 2025-06-19 09:12 | XMS RPT_ITS | CCD ---
Author Organization [facility] Care Team Providers Care Coding Specialist Name Role Phone Tanya LANDON, Dr. Ibarra Primary Care Provider William LANDON, Dr. Aristeo Hilton Attending Provider William LANDON, Dr. Aristeo Hilton Referring Provider Fred Martínez Primary Care Unavailable Aristeo Thomas Referring Unavailable Aristeo Thomas Attending Unavailable Medications Current Medications Medication Drug Class(es) Dates Sig (Normalized) Sig (Original) aspirin 81 mg oral tablet (3 sources) Platelet Aggregation Inhibitor, Nonsteroidal Anti-inflammatory Drug Start: 10-05-2023 take 1 capsule by mouth every other day Aspirin 81 mg capsule Active 81 mg PO .QOD October 05, 2023 1:00am Walk-in [facility] cholecalciferol 0.025 mg chewable tablet [...] 1 tablet by shalini th once daily Multivit,Ilene,Ib-Xfqfg-R6-Lycop (One A Da y Men Complete) 240-25-300 mcg tablet Active 1 TABLET PO DAILY October 05, 2023 1:00am Start: 10-05-2023 take 1 tablet by shalini th once daily Multivit,Ilene,Pj-Nacnm-Y8-Lycop (One A Da y Men Complete) 240-25-300 [...] 02-25-2025 PSA, FREE 1.83 ng/mL Normal N/A [facility] Comment on above: Result Comment: Nohemy EVERETT methodology. Performed By: #### L 3110.0500 #### [facility] [address] [place], [place], [id number] PSA, FREE % 27.9 Normal . [facility] Comment on above: Result Comment: The table [...] any other population of men. Performed at: [facility] [address] [place] [id number] Transplant Registered Nurse: Andre Prieto PhD, Phone: [phone] Performed By: #### L 3110.0500 #### [facility] [address] [place], [place], [id number] PSA, TOTAL ULTR 6.550 ng/mL Abnormal 0.000-4.000 [facility] Comment on above: Result Comment: Nohemy EVERETT methodology. According to the [employer] [employer], Serum PSA should decrease and [...] disease. Performed By: #### L 3110.0500 #### [facility] [address] [place], [place], [id number] Serum or plasma free prostat e specific antigen (PSA)/total PSA mass ratioOrdered By: Aristeo Thomas on 02-24-2025 Free PSA/Total PSA [Mass fraction] 27.9 % . [facility] Comment on above: The table below list [...] any other population of men.Performed at: - [facility] [id number] Director: Andre Prieto PhD, Phone: [phone] Absolute lymphocyte countOrd ered By: Charles Baez on 10-09-2023 Lymphocytes Auto (Unsp spec) [#/Vol] 1.95 10*3/uL 0.83-4.51 [facility] Automated lymphocyte count a s percentage of total leukocytesOrdered By: Charles Baez on 10-09-2023 Lymphocytes/100 WBC Auto (Unsp spec) 26.2 % 19-41 [facility] Basophil percentageOrdered B y: Charles Baez on 10-09-2023 Basophils/100 WBC (Bld) 1.6 % 0-1 [facility] Chloride [Moles/Vol] 109 mmol/L 98-107 [facility] Eosinophils/100 WBC (Bld) 7.4 % 0-5 [facility] Glucose [Mass/Vol] 88 mg/dL 74-106 [facility] Hemoglobin (Bld) [Mass/Vol] 15.9 g/dL 13.0-16.5 [facility] Monocytes/100 WBC (Bld) 16.9 % 0-10 [facility] Neutrophils (Bld) [#/Vol] 3.5 10*3/uL 2.0-7.7 [facility] Neutrophils/100 WBC (Bld) 47.4 % 47-70 [facility] Potassium [Moles/Vol] 4.2 mmol/L 3.5-5.1 [facility] Sodium [Moles/Vol] 138 mmol/L 136-145 [facility] WBC (Bld) [#/Vol] 7.5 10*3/uL 4.4-11.0 [facility] Determination of erythrocyte mean corpuscular volume (MCV)Ordered By: Charles Baez on 10-09-2023 MCV (RBC) [Entitic vol] 90.5 fL 80-94 [facility] Erythrocyte distribution wid th ratioOrdered By: Charles Baez on 10-09-2023 Erythrocyte distribution width (RBC) [Ratio] 12.4 % 11.6-14.6 [facility] Erythrocyte distribution wid th standard deviationOrdered By: Charles Baez on 10-09-2023 Erythrocyte distribution width (RBC) [Entitic vol] 41.4 fL 35.1-43.9 [facility] Hematocrit Auto (Bld) [Volum e fraction]Ordered By: Charles Baez on 10-09-2023 Hematocrit (Bld) [Volume fraction] 46.9 % 40-54 [facility] Immature granulocytes/100 WB C Auto (Bld)Ordered By: Charles Baez on 10-09-2023 Immature granulocytes/100 WBC (Bld) 0.500 % 0.0-0.9 [facility] Comment on above: IG% - Immature Granu locytes (promyelocytes, myelocytes and metamyelocytes) > 1% indicates that a LEFT SHIFT is Present. Laboratory - Chemistry and C hemistry - challengeOrdered By: Charles Baez on 10-09-2023 CO2 [Moles/Vol] 25.0 mmol/L 21.0-32.0 [facility] Magnesium [Mass/Vol] 2.5 mg/dL 1.6-2.6 [facility] Urea nitrogen/Creatinine [Mass ratio] 14.2 mg/mg 10-20 [facility] Laboratory - Hematology and Cell countsOrdered By: Charles Baez on 10-09-2023 MCH (RBC) [Entitic mass] 30.7 pg 27.0-32.0 [facility] MCHC (RBC) [Mass/Vol] 33.9 g/dL 32-36 [facility] Nucleated RBC/100 WBC (Bld) [Ratio] 0 % 0-5 [facility] Platelet mean volume (Bld) [Entitic vol] 9.8 fL 6.2-12.0 [facility] Platelets (Bld) [#/Vol] 274 10*3/uL 150-450 [facility] No Panel InformationOrdered By: Charles Baez on 10-09-2023 Estimated GFR (MDRD) Amer 77 mL/min >60 [facility] Comment on above: GFR Calc Estimated GFR (MDRD) Non-Af Amer 64 mL/min >60 [facility] Comment on above: Non- GFR Calc Nasal Screen MRSA/MSSA [facility] Nasal Screen MRSA/MSSA [facility] RBC Auto (Bld) [#/Vol]Ordere d By: Charles Baez on 10-09-2023 RBC (Bld) [#/Vol] 5.18 10*6/uL 4.6-6.2 [facility] Serum or plasma calcium linsey urement (mass/volume)Ordered By: Charles Baez on 10-09-2023 Calcium [Mass/Vol] 10.4 mg/dL 8.5-10.1 [facility] Serum or plasma creatinine m easurement (mass/volume)Ordered By: Charles Baez on 10-09-2023 Creatinine [Mass/Vol] 1.20 mg/dL 0.70-1.30 [facility] Comment on above: The validity of the calculated GFR & GFRAA in patients over 70 years has not been determined. Clinical correlation is essential. Serum or plasma urea nitroge n measurement (mass/volume)Ordered By: Charles Baez on 10-09-2023 Urea nitrogen [Mass/Vol] 17 mg/dL 7-18 [facility] Thin prep Papanicolaou smear with manual screeningOrdered By: Charles Baez on 10-09-2023 Thin prep Papanicolaou smear with manual screening 3.9 g/dL 3.2-5.0 [facility] Thin prep Papanicolaou smear with manual screening 4 5-15 [facility] Basophil percentageOrdered B y: Bro Martínez on 05-18-2023 Chloride [Moles/Vol] 109 mmol/L 98-107 [facility] Cholesterol [Mass/Vol] 172 mg/dL <200 [facility] Comment on above: <200 mg/dL Desirable 200-240 mg/dL Borderline >240 mg/dL High Risk Glucose [Mass/Vol] 90 mg/dL 74-106 [facility] Potassium [Moles/Vol] 4.2 mmol/L 3.5-5.1 [facility] Sodium [Moles/Vol] 139 mmol/L 136-145 [facility] Triglyceride [Mass/Vol] 70 mg/dL <199 [facility] Comment on above: The drugs N-Acetylcy steine and Metamizole may falsely depress this assay.Serum Triglycerides Reference Interval Normal <150 mg/dL Borderline high 150 - 199 mg/dL High 200 - 499 mg/dL Very High > or = 500 mg/dL Laboratory - Chemistry and C hemistry - challengeOrdered By: Bro Martínez on 05-18-2023 CO2 [Moles/Vol] 25.0 mmol/L 21.0-32.0 [facility] Urea nitrogen/Creatinine [Mass ratio] 17.6 mg/mg 10-20 [facility] No Panel InformationOrdered By: Bro Martínez on 05-18-2023 Estimated GFR (MDRD) Amer 87 mL/min >60 [facility] Comment on above: GFR Calc Estimated GFR (MDRD) Non-Af Amer 72 mL/min >60 [facility] Comment on above: Non- GFR Calc Prostate Specific Antigen Screen 8.76 ng/mL 0.00-4.00 [facility] Comment on above: This test was perfor med using the TPSA assay method for the[employer] chemistry system. Values obtained with differentassay methods cannot be used interchangably.When changing PSA assays in the course of monitoring apatient, additional sequential testing should be carriedout to confirm baseline values. Serum or plasma calcium linsey urement (mass/volume)Ordered By: Bro Martínez on 05-18-2023 Calcium [Mass/Vol] 9.8 mg/dL 8.5-10.1 [facility] Serum or plasma cholesterol in HDL measurement (mass/volume)Ordered By: Bro Martínez on 05-18-2023 Cholesterol in HDL [Mass/Vol] 50 mg/dL >40 [facility] Comment on above: The drugs N-Acetylcy steine and Metamizole may falsely depress this assay. Reference Range HDL <40 mg/dL Low HDL Cholesterol HDL >or= 60 mg/dL High HDL Cholesterol Serum or plasma cholesterol in VLDL measurement (mass/volume)Ordered By: Bro Martínez on 05-18-2023 Cholesterol in VLDL [Mass/Vol] 14 mg/dL 5-40 [facility] Serum or plasma creatinine m easurement (mass/volume)Ordered By: Bro Martínez on 05-18-2023 Creatinine [Mass/Vol] 1.08 mg/dL 0.70-1.30 [facility] Comment on above: The validity of the calculated GFR & GFRAA in patients over 70 years has not been determined. Clinical correlation is essential. Serum or plasma low density lipoprotein (LDL) cholesterol measurement (mass/volume)Ordered By: Bro Martínez on 05-18-2023 Cholesterol in LDL [Mass/Vol] 108 mg/dL 0-130 [facility] Serum or plasma urea nitroge n measurement (mass/volume)Ordered By: Bro Martínez on 05-18-2023 Urea nitrogen [Mass/Vol] 19 mg/dL 7-18 [facility] Thin prep Papanicolaou smear with manual screeningOrdered By: Bro Martínez on 05-18-2023 Thin prep Papanicolaou smear with manual screening 5 5-15 [facility] Basophil percentageon 2021 Chloride [Moles/Vol] 104 mmol/L 98-107 [facility] Work Phone: Glucose [Mass/Vol] 85 mg/dL 74-106 [facility] Work Phone: Potassium [Moles/Vol] 4.8 mmol/L 3.5-5.1 [facility] Work Phone: Sodium [Moles/Vol] 139 mmol/L 136-145 [facility] Work Phone: Laboratory - Chemistry and C hemistry - challengeon 05-19-2022 CO2 [Moles/Vol] 27.0 mmol/L 21.0-32.0 [facility] Work Phone: Urea nitrogen/Creatinine [Mass ratio] 20.9 mg/mg 10-20 [facility] Work Phone: No Panel Informationon 05-19 Estimated GFR (MDRD) Amer 101 mL/min >60 [facility] Work Phone: Comment on above: GFR Calc Estimated GFR (MDRD) Non-Af Amer 83 mL/min >60 [facility] Work Phone: Comment on above: Non- GFR Calc Serum or plasma calcium linsey urement (mass/volume)on 05-19-2022 Calcium [Mass/Vol] 9.9 mg/dL 8.5-10.1 [facility] Work Phone: Serum or plasma creatinine m easurement (mass/volume)on 05-19-2022 Creatinine [Mass/Vol] 0.96 mg/dL 0.70-1.30 [facility] Work Phone: Comment on above: The validity of the calculated GFR & GFRAA in patients over 70 years has not been determined. Clinical correlation is essential. Serum or plasma urea nitroge n measurement (mass/volume)on 05-19-2022 Urea nitrogen [Mass/Vol] 20 mg/dL 7-18 [facility] Work Phone: Thin prep Papanicolaou smear with manual screeningon 05-19-2022 Thin prep Papanicolaou smear with manual screening 8 5-15 [facility] Work Phone: No Panel Informationon 10-12 Prostate Specific Antigen Total 6.78 ng/mL 0.0-4.0 [facility] Work Phone: Comment on above: This test was perfor med using the TPSA assay method for [employer] chemistry system. Values obtained with differentassay methods cannot be used interchangably.When changing PSA assays in the course of monitoring apatient, additional sequential testing should be carriedout to confirm baseline values. Vital Signs Date Time Vital Sign Value Performing Clinician Faci lity 10-31-2023 12:45-0500 Body temperature 96.9 [degF] [facility] 10-31-2023 12:45-0500 Diastolic blood pressure 80 mm[Hg] [facility] 10-31-2023 12:45-0500 Heart rate 61 /min [facility] 10-31-2023 12:45-0500 Respiratory rate 12 /min [facility] 10-31-2023 12:45-0500 SaO2% (BldA) [Mass fraction] 98 % [facility] 10-31-2023 12:45-0500 Systolic blood pressure 120 mm[Hg] [facility] 10-31-2023 12:30-0500 Inhaled oxygen flow rate 4 L/min [facility] 10-31-2023 08:39-0500 Body height 177.8 cm [facility] 10-31-2023 08:39-0500 Body mass index (BMI) [Ratio] 31.6 kg/m2 [facility] 10-31-2023 08:39-0500 Body weight 100 kg [facility] Encounters Encounter Date Encounter Type Care Provider Facility Start: 02-24-2025 End: 02-24-[address] Fred Martínez MD Work Phone: [facility] [place] Start: 02-24-2025 End: 02-24-[address] Aristeo Thomas MD [facility] [place] Work Phone: Start: 02-24-2025 End: 02-24-2025 ambulatory Fred Martínez Facility:[facility] Start: 01-07-2024 End: 01-07-2024 ambulatory [facility] Work Phone: Start: 01-07-2024 End: 01-07-2024 Patient encounter [facility] Start: 10-31-2023 End: 10-31-2023 Admission to same day surgery center [facility] Start: 10-31-2023 End: 10-31-2023 ambulatory [facility] Work Phone: Start: 05-18-2023 End: 05-18-2023 ambulatory [facility] Work Phone: Start: 05-18-2023 End: 05-18-2023 Patient encounter procedure [facility] Work Phone: Start: 05-19-2022 End: 05-19-2022 ambulatory [facility] Work Phone: Start: 05-19-2022 End: 05-19-2022 [facility] Start: 12-20-2021 End: 12-20-2021 Patient encounter procedure [facility] Start: 10-12-2021 End: 10-12-2021 Patient [facility] Procedures Date Procedure Procedure Detail Performing Clinician Start: 02-24-2025 Free prostate specif ic antigen level Dr. Fred Martínez MD Work Phone: Comment on above: Doc [facility] methodol ogy. Start: 02-24-2025 Prostate specific an tigen measurement Dr. Fred Martínez MD Work Phone: Comment on above: Doc [facility]CLIA methodol ogy.According to the [employer], Serum PSAshould decrease and remain [...] open total hip arthroplasty ANESTH HIP ARTHROPLASTY [facility] Start: 10-31-2023 Arthrp acetblr/prox fem prostc agrft/algrft TOTAL HIP ARTHROPLASTY [facility] Start: 10-31-2023 Application of ice collar, cap or bag [facility] Start: 10-31-2023 Exercises [facility] Start: 10-31-2023 Incentive spirometry [facility] Start: 10-31-2023 Neurovascular assessment [facility] Start: 10-31-2023 Patient discharge [facility] Start: 10-31-2023 Patient education [facility] Start: 10-31-2023 Plain X-ray of hip Hip Min 2 Views (Portable) [facility] Start: 10-31-2023 Provision of activity privileges [facility] Start: 10-31-2023 Recommendation to continue with treatment [facility] Start: 10-31-2023 Referral to service [facility] Start: 10-31-2023 Vital signs measurements [facility] Start: 10-31-2023 Wound care [facility] Start: 10-31-2023 XR Hip GE 2 Views [facility] Start: 10-31-2023 [facility] Electrocardiographic procedure [facility] Patient referral [facility] Work Phone: Payers Date Payer Category Payer Medicare [id number] 2025 Self-pay [id number] 2017 Unknown [id number] 1a [id number] Unknown [id number] Social History Date Type Detail Facility Tobacco smoking stat [facility] Unknown if ever smoked [facility] Work Phone: Start: 1955 Sex Assigned At Male [facility] Start: 10-05-2023 End: 10-05-2023 Tobacco smoking status [facility] Unknown if ever smoked [facility] Start: 10-05-[facility]23 [facility] Medical Equipment Procedure Code Equipment Code Equipment Origin al Text Equipment Identifier Dates Minimally invasive total replacement of hip joint by anterior approach ([id number]) Ceramic femoral head prosthesis ()[id number] FDA Start: 10-31-2023 Minimally invasive total replacement of hip joint by anterior approach ([id number]) Coated hip femur prosthesis, modular ()[id number] FDA Start: 10-31-2023 Minimally invasive total replacement of hip joint by anterior approach ([id number]) Non-constrained polyethylene acetabular liner [id number] FDA Start: 10-31-2023 Minimally invasive total replacement of hip joint by anterior approach ([id number]) Acetabular shell ()[id number] FDA Start: 10-31-2023 Goals Date Patient Goal Desired Activity /State Mental Status Date Assessment Result Facility 10-31-2023 Cognitive function Voice/Name [facility] Work Phone: Procedure note 10-31-2023 Note Date & Type Note Facility 10-31-2023 Procedure note [facility] History and physical note 10-31-2023 Note Date & Type Note Facility 10-31-2023 History and physi ilene note Note Date/Time October 25, 2023 5:26am [facility] Medical Records Department [address] [place] [address] History & Physical Exam 10/25/23 0526 MR#: [id number] Acct: [id number] Name: AGUILAR SCHWARTZ Rep #:[id number] : 1955 68 From: Blake GARDNER PA-C PCP: Dr. Bro Martínez MD Status: [facility] Location: [place] [address] History and Physical History and Physical? Patient [...] history? hypercalcemia Accidents: Fracture - (1966) HAND [facility] REBOLLEDO Surgical Hx: Kidney Stones - (1999) [facility] ER Anesthesia Complications: None Assistive Devices: Glasses [...] Zofran, and oxycodone.? Patient was instructed to pick and shovel man aspirin 81 mg, extra strength Tylenol, and [...] MD; Dr. Charles Baez MD ~* Signed [facility] Work Phone: Hospital Discharge instructions 10-09-2023 Note Date & Type Note Facility 10-09-2023 Hospital Discharg e instructions Ambulatory [id number] Lead EKG [[facility]] Time Frame: 10/09/23, Location: None Selected Additional Instructions Implant Used?: Yes [facility] Work Phone: Evaluation note Note Date & Type Note Facility Evaluation note No assessment information availa ble [facility] Work Phone: Reason for referral (narrative) Note Date & Type Note Facility Reason for referral (narrative) No reason for referral information available [facility] Work Phone: Chief Complaint and Reason for Visit Chief Complaint PSA Chief Complaint EORDER Chief Complaint Total Hip Anterior A pproach Chief Complaint Total Hip Anterior A pproach EORDER Chief Complaint Admit Date PSA February 24, 2025 8:21 am Advance Directives No Advanced Directives Records Found Advance Directive Response Recorded Date/ Time Living Will Yes October 05 9:17am Power of Mold Yard Worker Yes October 05, 2023 9:17am Name of Medical Power of Mold Yard Worker [employer]ECKER October 05, 2023 9:17am Advance Directive Response Recorded Date/ Time Living Will Yes October 05 10:17am Power of Mold Yard Worker Yes October 05, 2023 10:17am Name of Medical Power of Mold Yard Worker HANDY BECKER October 05, 2023 10:17am Summary [...] section and content) DATE CREATED AUTHOR 03/01/2025 [facility] FOR RECORDS PERTAINING TO PATIENTS WHO ARE [...] BE BASED ON THE PRIMARY CLINICAL RECORDS. [employer] provides no warranty or guarantee of the accuracy or completeness of information in this document.
[2025-06-19 09:53] LABS: Ionized Calcium Order ORDER TUBE
[2025-06-19 10:35] LABS: PTHIN 56 pg/mL (11-61)
[2025-06-19 10:54] LABS: AST(SGOT) 20 U/L (<=37); Alanine Aminotransfer ALT/SGPT 20 U/L (<=46); Albumin, Serum 4.3 g/dL (3.4-4.8); Alkaline Phosphatase 82 U/L (40-129); Anion Gap 8 (5-15); BUN 17 mg/dL (4-19); BUN/Creat Ratio 17.4 RATIO (10-20); Calcium,Total 10.2 mg/dL (7.6-11.0); Carbon Dioxide 26.6 mmol/L (21.0-32.0); Chloride 103 mmol/L (98-108); Cholesterol 180 mg/dL (<=200); Globulin 3.0 g/dL (2.2-4.2); Glucose 93 mg/dL (70-99); Low Density Lipoprotein Calc. 114 mg/dL; Potassium 4.6 mmol/L (3.3-5.1); Triglycerides 80 mg/dL; Very Low Density Lipoprotein 16 mg/dL (5-40); Vitamin D,25 Hydroxy 37.2 ng/mL (30-100); cholesterol:hdl ratio screen 3.64
== END | disposition home or self-care (01) ==
LOC: MFPLAB 08:51
PROVIDERS: PCP Family Medicine; Visit Provider Family Medicine
DX: R79.89 Other specified abnormal findings of blood chemistry (principal); I10 Essential (primary) hypertension; E83.52 Hypercalcemia
CPT/HCPCS: 36415; 80053; 80061; 82306; 82330; 83970; 84439; 84443